=== PATIENT | male | born 1965 | race Caucasian/White ===

== ENCOUNTER 2020-02-14 09:00 | Inpatient (IN) | payer OTHER ==
[~2020-02-14] VITALS: Ht 177.8 cm; Wt 70.5 kg
[2020-02-14] MEDS ORDERED: SODIUM CHLORIDE 0.9% 1,000 ML IV ONE ×2 (10:06)
[2020-02-14] MEDS ORDERED: AZITHROMYCIN 500MG/ 250ML 250 ML IV ONE (10:15)
[2020-02-14] MEDS ORDERED: cefTRIAXone 1GM/50ML D5W 50 ML IV ONE (10:15)
[2020-02-14 11:25] LABS: Basophils # (auto) 0.1 10 ^3/uL (0-0.2); Basophils % (auto) 0.4 % (0.0-2.0); Eosinophils # (auto) 0 10 ^3/uL (0-0.8); Eosinophils % (auto) 0.3 % (0.0-7.0); Hematocrit 42.8 % (41.0-53.0); Hemoglobin 13.9 g/dL (13.5-17.5); Lymphocytes # (auto) 1.1 10 ^3/uL (0.4-5.4); Lymphocytes % (auto) 8.9 % (10.0-50.0); Mean Corpuscular Hgb Conc. 32.5 g/dL (32.0-36.0); Mean Corpuscular Volume 92.5 fL (80.0-100.0); Monocytes # (auto) 0.8 10 ^3/uL (0-1.3); Neutrophils # (auto) 10.6 10 ^3/uL (1.6-8.6); Neutrophils % (auto) 84.4 % (37.0-80.0); Nucleated Red Blood Cells % 0.1 %; Platelet Count (auto) 203 10^3/uL (140-450); Red Blood Cells 4.63 10^6/uL (4.5-5.90); Red Cell Distribution Width 13.5 % (11.8-14.3); White Blood Cell 12.6 10^3/uL (4.4-10.8)
[2020-02-14 12:01] LABS: Albumin 3.6 g/dL (3.4-5.0); Anion Gap 9 (5-15); Blood Urea Nitrogen 17 mg/dL (7-18); Calcium 8.4 mg/dL (8.5-10.1); Carbon Dioxide 19 mmol/L (21-32); Chloride 112 mmol/L (98-107); Glucose 95 mg/dL (74-106); Potassium 3.9 mmol/L (3.5-5.1); Sodium 140 mmol/L (136-145)
[2020-02-14 12:08] LABS: Alanine Aminotransferase 23 U/L (16-61); Alkaline Phosphatase 57 U/L (45-117); Aspartate Aminotransferase 16 U/L (15-37); BUN/Creatinine Ratio 15.5; Bilirubin, Total 0.7 mg/dL (0.2-1.0); GFR African American 89 mL/min; GFR Non-African American 74 mL/min; Lactate Dehydrogenase 213 U/L (87-241); Total Protein 7.1 g/dL (6.4-8.2)
[2020-02-14 12:23] LABS: Partial Thromboplastin Time 24.8 sec (23.64-32.05)
[2020-02-14] MEDS ORDERED: ACETAMINOPHEN 500 MG TAB PO PRN (15:45)
[2020-02-14] MEDS ORDERED: MORPHINE SULF INJ 2 MG/ML SYRINGE 1ML IV PRN ×2 (15:45)
[2020-02-14] MEDS ORDERED: HYDROcodone-ACET 5/325MG TAB PO PRN (15:45)
[2020-02-14] MEDS ORDERED: NITROGLYCERIN 0.4 MG SL TAB SL PRN (15:45)
[2020-02-14] MEDS ORDERED: ONDANSETRON HCL 4 MG/2 ML VIAL IV PRN (15:45)
[2020-02-14 19:25] LABS: Urine WBC None Seen /hpf (0 - 3)
[2020-02-14 19:28] LABS: Urine Bacteria NONE SEEN /hpf (None Seen); Urine Blood Negative /uL (Negative); Urine Mucus FEW (None Seen)
--- NOTE | 2020-02-14 19:53 | NUR ---
Telemetry admit from ER [facility] admitted to Telemetry unit after SBAR received. Patient oriented to Champ ma RN, unit, room, bed, and unit policies regarding patient care and visiting hours. Patient now on continuous telemetry monitoring, tele box # [id number] and telemetry reading on arrival to unit is nsr. Patient placed on bedside oxygen, weighed by bedscale and encouraged to call if they need something. All questions and concerns addressed, patient verbalized understanding.
[2020-02-15 05:00] VITALS: BP 115/66
[2020-02-15 06:55] LABS: Basophils # (auto) 0.1 10 ^3/uL (0-0.2); Basophils % (auto) 0.7 % (0.0-2.0); Eosinophils # (auto) 0.3 10 ^3/uL (0-0.8); Eosinophils % (auto) 3.9 % (0.0-7.0); Hemoglobin 13.2 g/dL (13.5-17.5); Lymphocytes # (auto) 1.2 10 ^3/uL (0.4-5.4); Lymphocytes % (auto) 14.8 % (10.0-50.0); Mean Corpuscular Hemoglobin 31.1 pg (28.0-32.0); Mean Corpuscular Hgb Conc. 33.8 g/dL (32.0-36.0); Monocytes # (auto) 0.5 10 ^3/uL (0-1.3); Monocytes % (auto) 6.9 % (0.0-12.0); Neutrophils # (auto) 5.8 10 ^3/uL (1.6-8.6); Neutrophils % (auto) 73.7 % (37.0-80.0); Nucleated Red Blood Cells % 0.2 %; Platelet Count (auto) 190 10^3/uL (140-450); Red Blood Cells 4.23 10^6/uL (4.5-5.90); Red Cell Distribution Width 13.1 % (11.8-14.3); White Blood Cell 7.9 10^3/uL (4.4-10.8)
--- NOTE | 2020-02-15 07:00 | NUR ---
OPEN NOTE RECEIVED PATIENT FROM NIGHT RN ONI. PATIENT ALERT AND ORIENTED X 4; RESPIRATION RELAXED AND EVEN ON ROOM AIR; PATIENT REPORTED SLEPT WELL AND WANTS TO GO HOME TODAY. POC DISCUSSED WITH PATIENT. BED IN LOWEST POSITION; CALL LIGHT WITHIN REACH, INSTRUCTED PATIENT TO CALL WITH ANY NEEDS, QUESTIONS OR CONCERNS. WILL CONTINUE TO MONITOR Q HOUR.
[2020-02-15 07:13] LABS: Calcium 8.3 mg/dL (8.5-10.1)
[2020-02-15 07:15] LABS: BUN/Creatinine Ratio 17.5
[2020-02-15] MEDS ORDERED: IBUP100S11 GT (07:41)
[2020-02-15] MEDS ORDERED: OMEP20TA PO (07:41)
[2020-02-15] MEDS ORDERED: cefTRIAXone 1GM/50ML D5W 50 ML IV SCH (09:00)
[2020-02-15 09:14] VITALS: BP 126/72
[2020-02-15] MEDS ORDERED: FAMOTIDINE 20 MG TAB PO SCH (10:00)
[2020-02-15] MEDS ORDERED: AZITHROMYCIN 500MG/ 250ML 250 ML IV SCH (10:00)
--- NOTE | 2020-02-15 12:00 | NUR ---
DR aJson FREDERICK BEDSIDE. PATIENT WILL BE DISCHARGED HOME AFTER RECEIVING IV ANTIBIOTICS, PATIENT VERBALIZED UNDERSTANDING.
[2020-02-15 13:00] VITALS: BP 137/86
[2020-02-15 16:58] VITALS: BP 133/75
--- NOTE | 2020-02-15 17:10 | NUR ---
Discharge instructions given as ordered. Encourage to follow up with PMD as instructed. All questions and concerns addressed. Patient verbalized understanding. IV removed with catheter intact, pressure dressing applied. Telemetry unit returned to ICU. Patient taken to vehicle via wheelchair with all personal belongings, accompanied by staff and family member. No distress noted at time of departure.
== END 2020-02-15 17:10 | disposition home or self-care (01) | DRG 195 ==
LOC: ER 09:00 → TELE 09:01 → TELE-CENTR 19:53
PROVIDERS: ADMIT Nurse Practitioner Acute Care; ATTEND Nurse Practitioner Acute Care
DX: J18.9 Pneumonia, unspecified organism (principal); Z03.818 Encounter for observation for suspected exposure to other biological agents ruled out; F17.210 Nicotine dependence, cigarettes, uncomplicated; K21.9 Gastro-esophageal reflux disease without esophagitis; M19.90 Unspecified osteoarthritis, unspecified site
CPT/HCPCS: 36415; 71045; 80048; 80053; 81001; 82728; 83615; 83880; 84484; 85025; 85379; 85610; 85730; 86141; 87040; 87070; 87804; 87880; 96365; 96366; 96368; G0378; J0696